=== PATIENT | male | born 1965 | race Caucasian/White ===

== ENCOUNTER 2020-10-03 11:19 | Emergency (ER) | payer MEDICARE ==
[~2020-10-03] VITALS: Ht 175.3 cm; Wt 81.8 kg
[2020-10-03 11:30] VITALS: TEMP 98.2
[2020-10-03 12:38] LABS: BASO # 0.1 (0.0-0.2); BASO % 0.4 % (0.0-2.0); EOS # 0.1 (0.0-0.7); EOS % 0.5 % (0-4.0); GRAN # 10.3 (1.4-6.5); GRAN % 77.4 % (42.2-75.2); HEMATOCRIT 51.1 % (42.0-52.0); HEMOGLOBIN 16.8 g/dl (13.5-18.0); LYMPH % 15.2 % (20.0-51.0); MEAN CELL VOLUME 87 fl (80.0-100.0); MEAN CORPUSCULAR HEMOGLOBIN 29 pg (27.0-31.0); MEAN CORPUSCULAR HGB CONC 33 g/dl (33.0-37.0); MEAN PLATELET VOLUME 8.8 fl (7.4-10.4); MONO # 0.8 (0.1-0.6); MONO % 6.1 % (1.7-9.3); PLATELET COUNT 269 K/mm3 (130-400); RED BLOOD COUNT 5.87 M/mm3 (4.20-5.60); REDCELL DISTRIBUTION WIDTH-CV 16.9 % (11.5-14.5)
[2020-10-03 12:44] LABS: ALANINE AMINOTRANSFERASE 31 U/L (4-49); ALBUMIN 4.5 gm/dL (3.5-5.0); ALKALINE PHOSPHATASE 94 U/L (50-136); ANION GAP 9 mmol/L (7-16); AST,SGOT 27 U/L (15-37); BILIRUBIN,TOTAL 0.7 mg/dL (0.0-1.0); BLOOD UREA NITROGEN 11 mg/dL (9-20); CALCIUM 10.2 mg/dL (8.4-10.2); CARBON DIOXIDE 26 mmol/L (22-30); CHLORIDE 105 mmol/L (98-107); CREATININE, serum 1.11 (0.66-1.25); GLUCOSE 109 mg/dL (74-106); POTASSIUM 3.9 mmol/L (3.4-5.0); SODIUM 140 mmol/L (137-145); TOTAL PROTEIN 7.9 gm/dL (6.4-8.2)
[2020-10-03 12:58] LABS: TROPONIN-I < 0.012 ng/mL (0.000-0.035)
[2020-10-03 14:16] LABS: COLLECTION METHOD CLEAN CATCH
[2020-10-03 14:38] LABS: GLUCOSE,CSF 75 mg/dL (40-70); TOTAL PROTEIN,CSF 50 mg/dL (15-45)
[2020-10-03 14:41] LABS: TRICYCLIC ANTIDEPRESS URINE NEGATIVE
[2020-10-03 15:11] LABS: PH 5 (5-8); SQUAMOUS EPITHELIAL 0-2 /hpf; URINE APPEARANCE Clear; URINE BACTERIA None Seen /hpf; URINE BILIRUBIN Negative (NEGATIVE); URINE BLOOD Negative (NEGATIVE); URINE COLOR Yellow; URINE GLUCOSE Negative (NEGATIVE); URINE KETONE Negative (NEGATIVE); URINE LEUKOCYTE ESTERASE Negative (NEGATIVE); URINE NITRATE Negative (NEGATIVE); URINE PROTEIN(semi-quant) Negative (NEGATIVE); URINE RBC 0-2 /hpf; URINE UROBILINOGEN Negative (NEGATIVE)
[2020-10-03 15:27] LABS: CSF APPEARANCE CLEAR; CSF COLOR COLORLESS; CSF RBC 14 /mm3 (0-0)
[2020-10-03 15:28] LABS: CSF MONONUCLEAR 83 % (70-100); CSF POLYMORPHONUCLEAR 17 % (0-6)
[2020-10-03 16:53] LABS: TSH w REFLEX 2.889 uIU/mL (0.350-4.940)
[2020-10-03 17:18] LABS: ACETAMINOPHEN < 10 ug/mL (10-30); SALICYLATE < 1.0 mg/dL
[2020-10-03 22:53] VITALS: BP 145/78; PULSE 64
[2020-10-05 13:16] LABS: HSV 2 DNA PCR QUAL Not Detected (())
== END 2020-10-03 22:53 | disposition home or self-care (01) ==
LOC: COL.ER 11:19
PROVIDERS: Emergency Medicine
DX: R44.1 Visual hallucinations (principal); R45.851 Suicidal ideations; D72.829 Elevated white blood cell count, unspecified; F32.9 Major depressive disorder, single episode, unspecified; Z20.822 Contact with and (suspected) exposure to COVID-19
CPT/HCPCS: J7030